=== PATIENT | female | born 1950 | race Caucasian/White ===

== ENCOUNTER → 2023-01-20 | Outpatient (CLI) | payer MEDICARE, OTHER ==
[2023-01-20 12:29] VITALS: BP 136/81; PULSE 89; RESP 17; TEMP 98
--- NOTE | 2023-01-20 13:09 | P.GSHP ---
History of Present Illness H&P Date: 01/20/23 Chief Complaint: Abnormal left breast mammogram and ultrasound Leah is a 72-year-old white female who underwent a bilateral mammogram on . Findings revealed an irregular spiculated high-density mass that was 1.3 x 1.2 cm in the upper outer left breast. Anlesions of concern were seen in the right breast. An ultrasound was done which confirmed the lesion of concern. The margins were angular and spiculated. She has felt a lump in her left breast for about 1 week. This was her first ever mammogram. She is not complaining of any trauma or infection in the breast. She is not complaining of any nipple discharge or skin changes. Caffeine:1 1/2 cup.day nicotine: none chocolate: occasional Family History: father: cancer ? type paternal aunt: bilateral breast cancer Hormonal History: menarche: 14 , breast fed, first born at 26 menopause: 44 Surgical History: serenity Medical History: none SociaL History: nicotine: none alcohol:daily wine drugs: none - Constitutional Constitutional: Denies chills, Denies fever - EENT Eyes: denies blurred vision, denies pain Ears: bilateral: decreased hearing, deny: tinnitus Ears, nose, mouth and throat: Denies headache, Denies sore throat - Breasts Breasts: bilateral: as per HPI - Cardiovascular Cardiovascular: Denies chest pain, Denies shortness of breath - Respiratory Respiratory: Denies cough, Denies 7 - Gastrointestinal Gastrointestinal: Denies abdominal pain, Denies diarrhea, Denies nausea, Denies vomiting - Genitourinary (Female) Genitourinary: Denies dysuria, Denies hematuria - Menstruation Menstruation: Reports postmenopausal - Musculoskeletal Musculoskeletal: Denies myalgias - Integumentary Integumentary: Denies pruritus, Denies rash - Neurological Neurological: Denies numbness, Denies weakness - Psychiatric Psychiatric: Denies anxiety, Denies depression - Endocrine Endocrine: Denies fatigue, Denies weight change - Hematologic/Lymphatic Comment: none - Allergic/Immunologic Allergic/Immunologic: Reports as per HPI Past Medical History Past Medical History: No Reported History History of Any Multi-Drug Resistant Organisms: None Reported Past Surgical History: No Surgical Hx Reported Additional Past Anesthesia/Blood Transfusion Reaction / Comment(s): no anesthesia Past Psychological History: No Psychological Hx Reported Smoking Status: Never smoker Past Alcohol Use History: Occasional Past Drug Use History: None Reported Medications and Allergies Home Medications Medication Instructions Recorded Confirmed Type Aspirin [[place] Aspirin EC] 81 mg PO DAILY 01/05/23 01/20/23 History Calcium Carb/Mag Ox/Zinc Sulf 1 tablet PO DAILY 01/20/23 01/20/23 History [Gul-Yji-Idau 334-134-5 mg Tab] Cholecalciferol (Vitamin D3) 125 mcg PO DAILY 01/20/23 01/20/23 History [Vitamin D3 (125 MCG = 5,000 IU)] Curcumin-Phosphatidylcholine 500 mg PO DAILY 01/20/23 01/20/23 History [Curcumin Phytosome] Glucosamine Sulfate 1,000 mg PO DAILY 01/20/23 01/20/23 History Melatonin 5 mg PO DIRECTED PRN 01/20/23 01/20/23 History Multivitamin [Multivitamins Adult 1 tablet PO DAILY 01/20/23 01/20/23 History Gummies] Ubidecarenone [Co Q-10] 30 mg PO DAILY 01/20/23 01/20/23 History Vitamin K2 [Mk-7] 90 mcg PO DAILY 01/20/23 01/20/23 History Allergies Allergy/AdvReac Type Severity Reaction Status Date / Time No Known Allergies Allergy Verified 01/20/23 12:21 Surgical - Exam Vital Signs Temp Pulse Resp BP Pulse Ox 98.0 F 89 17 136/81 95 01/20/23 12:26 01/20/23 12:26 01/20/23 12:26 01/20/23 12:26 01/20/23 12:26 - General no distress - Eyes normal ocular movement - ENT no hearing loss, no congestion - Neck trachea midline - Respiratory normal respiratory effort, clear to auscultation - Cardiovascular Rhythm: regular Heart Sounds: normal: S1, S2 - Abdomen Abdomen: soft, non tender, no guarding, no rigid, no rebound - Integumentary normal turgor - Neurologic no disoriented, no combative - Musculoskeletal normal gait - Psychiatric oriented to time, oriented to person, oriented to place, speech is normal, memory intact Breast Exam: BRA: 38I inspection: The lateral grade 3 ptosis Palpation: Right breast: Multi-positional exam fibrocystic changes no dominant masses or nodules of concern Left breast: Multiple positional exam fibrocystic changes at 3 o'clock position is approximately 1-1/2 cm area of firmness consistent with that which is seen radiographically Left axilla: No adenopathy of concern Results Mammogram and ultrasound reviewed with Dr. Doe Assessment and Plan Assessment: Impression: Radiographic and palpable abnormality left breast Plan: Left breast ultrasound-guided core biopsy follow-up after ultrasound-guided core biopsy Cc: Dr. Choi
== END ==
LOC: WWCWWP 11:38
PROVIDERS: ATTEND Surgery
DX: N63.21 Unspecified lump in the left breast, upper outer quadrant (principal); Z80.3 Family history of malignant neoplasm of breast; Z79.82 Long term (current) use of aspirin

== ENCOUNTER → 2023-01-24 | Day surgery (SDC) | payer MEDICARE, OTHER ==
--- NOTE | 2023-01-31 09:58 | MM ---
Reason for Exam: Post Procedure Mammogram. Patient History: Menarche at age 14. First Full-Term at age 26. Postmenopausal. Patient has history of breast feeding. Risk Values: Nanci 5 year model risk: 1.5%. NCI Lifetime model risk: 4.5%. Tissue Density: Left: The breast tissue is heterogeneously dense. This may lower the sensitivity of mammography. Pathology Description: Location: 2 o'clock. Marker Left Behind. Needle Type: Celero Cores: 5 Gauge: 12 The procedure of ultrasound guided core biopsy was explained to the patient. Benefits, alternatives, and risks were discussed. An informed consent was then obtained. The patient was placed in supine positioning for imaging and for the procedure. The overlying skin was prepped and draped in usual sterile fashion. Lidocaine buffered with bicarbonate was used as anesthetic into the skin and subcutaneous tissue up to area of concern in the left 2:00 breast. Under ultrasound guidance, a 12-gauge vacuum assisted biopsy gun device was used to obtain 5 core samples from a mass with tail component. Following this, a biopsy clip was left in lesion. The patient tolerated the procedure well without any immediate complication. The patient was kept in the radiology department for short stay after the procedure and then discharged home in stable condition. Postprocedure mammogram: The patient was transferred to mammography for physician ordered post procedure mammogram for clip placement verification. Impression: Successful, uncomplicated ultrasound guided core biopsy of a mass with tail component in the left 2:00 breast, full pathology results to follow. Pathology Results: Result: Malignant, Invasive ductal carcinoma. LEFT BREAST, 2:00, ULTRASOUND GUIDED NEEDLE CORE BIOPSY: Invasive moderately differentiated ductal carcinoma (Grade 2). See Surgical Pathology Cancer Case Summary. Overall Assessment: Malignant Assessment: MG diagnostic mammo LT wo CAD. - Left: Known biopsy proven malignancy, BI-RAD 6. Management: Surgical Consultation of the left breast. Electronically signed and approved by: Irvni Mason M.D. Radiologis
== END ==
LOC: RADUSWWP 12:38
PROVIDERS: ATTEND Surgery
DX: C50.212 Malignant neoplasm of upper-inner quadrant of left female breast (principal); Z17.0 Estrogen receptor positive status [ER+]; Z78.0 Asymptomatic menopausal state
CPT/HCPCS: 88305; 88342; 88341; 77065; 19083; A4648

== ENCOUNTER → 2023-01-28 | Outpatient (CLI) | payer MEDICARE, OTHER ==
[2023-01-28 12:41] VITALS: BP 146/74; PULSE 74; RESP 17; TEMP 97.6
--- NOTE | 2023-01-28 12:48 | P.PN ---
Subjective Progress Note Date: 01/28/23 Principal diagnosis: left breast invasive ductal cancer Abnormal left breast mammogram and ultrasound Leah is a 72-year-old white female who underwent a bilateral mammogram on . Findings revealed an irregular spiculated high-density mass that was 1.3 x 1.2 cm in the upper outer left breast. Anlesions of concern were seen in the right breast. An ultrasound was done which confirmed the lesion of concern. The margins were angular and spiculated. She has felt a lump in her left breast for about 1 week. This was her first ever mammogram. She is not complaining of any trauma or infection in the breast. She is not complaining of any nipple discharge or skin changes. 01-28-23 Biopsy of the left breast 01-24-23 invasive ductal cancer G2, ER+ Pr+ Her2- She tolerated the biopsy without difficulty. She did develop some ecchymosis fo llowing the biopsy. Caffeine:1 1/2 cup.day nicotine: none chocolate: occasional Family History: (both of them had been radiated by their father who was a DR. children and both developed cancer) father: cancer ? type paternal aunt: bilateral breast cancer Hormonal History: menarche: 14 , breast fed, first born at 26 menopause: 44 Surgical History: serenity Medical History: none SociaL History: nicotine: none alcohol:daily wine drugs: none - Constitutional Constitutional: Denies chills, Denies fever - EENT Eyes: denies blurred vision, denies pain Ears: bilateral: decreased hearing, deny: tinnitus Ears, nose, mouth and throat: Denies headache, Denies sore throat - Breasts Breasts: bilateral: as per HPI - Cardiovascular Cardiovascular: Denies chest pain, Denies shortness of breath - Respiratory Respiratory: Denies cough - Gastrointestinal Gastrointestinal: Denies abdominal pain, Denies diarrhea, Denies nausea, Denies vomiting - Genitourinary (Female) Genitourinary: Denies dysuria, Denies hematuria - Menstruation Menstruation: Reports postmenopausal - Musculoskeletal Musculoskeletal: Denies myalgias - Integumentary Integumentary: Denies pruritus, Denies rash - Neurological Neurological: Denies numbness, Denies weakness - Psychiatric Psychiatric: Denies anxiety, Denies depression - Endocrine Endocrine: Denies fatigue, Denies weight change - Hematologic/Lymphatic Comment: none - Allergic/Immunologic Allergic/Immunologic: Reports as per HPI Past Medical History Past Medical History: No Reported History History of Any Multi-Drug Resistant Organisms: None Reported Past Surgical History: No Surgical Hx Reported Additional Past Anesthesia/Blood Transfusion Reaction / Comment(s): no anesthesia Past Psychological History: No Psychological Hx Reported Smoking Status: Never smoker Past Alcohol Use History: Occasional Past Drug Use History: None Reported Medications and Allergies Home Medications Medication Instructions Recorded Confirmed Type Aspirin [[place] Aspirin EC] 81 mg PO DAILY 01/05/23 01/20/23 History Calcium Carb/Mag Ox/Zinc Sulf 1 tablet PO DAILY 01/20/23 01/20/23 History [Gkq-Eiy-Vaba 334-134-5 mg Tab] Cholecalciferol (Vitamin D3) 125 mcg PO DAILY 01/20/23 01/20/23 History [Vitamin D3 (125 MCG = 5,000 IU)] Curcumin-Phosphatidylcholine 500 mg PO DAILY 01/20/23 01/20/23 History [Curcumin Phytosome] Glucosamine Sulfate 1,000 mg PO DAILY 01/20/23 01/20/23 History Melatonin 5 mg PO DIRECTED PRN 01/20/23 01/20/23 History Multivitamin [Multivitamins Adult 1 tablet PO DAILY 01/20/23 01/20/23 History Gummies] Ubidecarenone [Co Q-10] 30 mg PO DAILY 01/20/23 01/20/23 History Vitamin K2 [Mk-7] 90 mcg PO DAILY 01/20/23 01/20/23 History Allergies Allergy/AdvReac Type Severity Reaction Status Date / Time No Known Allergies Allergy Verified 01/20/23 12:21 Objective - Constitutional General appearance: Present: cooperative - EENT Eyes: Present: EOMI ENT: Present: hearing grossly normal - Neck Neck: Present: normal ROM - Respiratory Respiratory: bilateral: CTA - Cardiovascular Rhythm: regular Heart sounds: normal: S1, S2 - Gastrointestinal General gastrointestinal: Present: soft - Integumentary Integumentary: Present: normal turgor - Musculoskeletal Musculoskeletal: Present: gait normal - Psychiatric Psychiatric: Present: A&O x's 3, appropriate affect, intact judgment & insight - Additional findings Additional findings: Breast Exam: BRA: 38I inspection: Bilateral grade 3 ptosis Palpation: Right breast: Multi-positional exam fibrocystic changes no dominant masses or nodules of concern Left breast: Multiple positional exam fibrocystic changes at 3 o'clock position is approximately 1-1/2 cm area of firmness consistent with that which is seen radiographically; echymosis at site of biopsy Evidence of infection or hematoma Left axilla: No adenopathy of concern Assessment and Plan Assessment: Impression: Left breast invasive ductal carcinoma stage I Plan: Left breast needle localization lumpectomy, left sentinel node biopsy possible axillary node dissection, hyperplastic tissue transfer Presentation of case at tumor board patient wixhes to have this done Risk and benefits of this procedure discussed with the patient and her . Risks include but are not limited to bleeding, infection, reaction to the anesthetic. Additionally we have discussed the fact that the choosing wisely initiative would suggest that the age of 72-year-old or may not benefit from sentinel lymph node biopsy. The patient wishes to have this done. Jimbo
== END ==
LOC: WWCWWP 11:53
PROVIDERS: ATTEND Surgery
DX: C50.412 Malignant neoplasm of upper-outer quadrant of left female breast (principal); R92.8 Other abnormal and inconclusive findings on diagnostic imaging of breast; Z80.3 Family history of malignant neoplasm of breast; Z17.0 Estrogen receptor positive status [ER+]; Z79.82 Long term (current) use of aspirin

== ENCOUNTER → 2023-04-07 | Outpatient (CLI) | payer MEDICARE, OTHER ==
[2023-04-07 13:21] VITALS: BP 116/77; PULSE 78; RESP 18; TEMP 97.8
--- NOTE | 2023-04-07 13:34 | P.PN ---
Subjective Progress Note Date: 04/07/23 Principal diagnosis: left breast invasive ductal cancer stage I Abnormal left breast mammogram and ultrasound Leah is a 72-year-old white female who underwent a bilateral mammogram on . Findings revealed an irregular spiculated high-density mass that was 1.3 x 1.2 cm in the upper outer left breast. Anlesions of concern were seen in the right breast. An ultrasound was done which confirmed the lesion of concern. The margins were angular and spiculated. She has felt a lump in her left breast for about 1 week. This was her first ever mammogram. She is not complaining of any trauma or infection in the breast. She is not complaining of any nipple discharge or skin changes. 01-28-23 Biopsy of the left breast 01-24-23 invasive ductal cancer G2, ER+ Pr+ Her2- She tolerated the biopsy without difficulty. She did develop some ecchymosis following the biopsy. 04-07-23 case presented at tumor board on 02-08-23 agree with surgical intervention to be followed by medical oncology and radiation oncology Patient does not complain of any new lumps masses or nodules of concern in either breast. She does have some fullness in the 3 o'clock position of the left breast which has not changed Caffeine:1 1/2 cup.day nicotine: none chocolate: occasional Family History: (both of them had been radiated by their father who was a DR. children and both developed cancer) father: cancer ? type paternal aunt: bilateral breast cancer Hormonal History: menarche: 14 , breast fed, first born at 26 menopause: 44 Surgical History: none Medical History: none SociaL History: nicotine: none alcohol:daily wine drugs: none - Constitutional Constitutional: Denies chills, Denies fever - EENT Eyes: denies blurred vision, denies pain Ears: bilateral: decreased hearing, deny: tinnitus Ears, nose, mouth and throat: Denies headache, Denies sore throat - Breasts Breasts: bilateral: as per HPI - Cardiovascular Cardiovascular: Denies chest pain, Denies shortness of breath - Respiratory Respiratory: Denies cough - Gastrointestinal Gastrointestinal: Denies abdominal pain, Denies diarrhea, Denies nausea, Denies vomiting - Genitourinary (Female) Genitourinary: Denies dysuria, Denies hematuria - Menstruation Menstruation: Reports postmenopausal - Musculoskeletal Musculoskeletal: Denies myalgias - Integumentary Integumentary: Denies pruritus, Denies rash - Neurological Neurological: Denies numbness, Denies weakness - Psychiatric Psychiatric: Denies anxiety, Denies depression - Endocrine Endocrine: Denies fatigue, Denies weight change - Hematologic/Lymphatic Comment: none - Allergic/Immunologic Allergic/Immunologic: Reports as per HPI Past Medical History Past Medical History: No Reported History History of Any Multi-Drug Resistant Organisms: None Reported Past Surgical History: No Surgical Hx Reported Additional Past Anesthesia/Blood Transfusion Reaction / Comment(s): no anesthesia Past Psychological History: No Psychological Hx Reported Smoking Status: Never smoker Past Alcohol Use History: Occasional Past Drug Use History: None Reported Medications and Allergies Home Medications Medication Instructions Recorded Confirmed Type Aspirin [[place] Aspirin EC] 81 mg PO DAILY 01/05/23 01/20/23 History Calcium Carb/Mag Ox/Zinc Sulf 1 tablet PO DAILY 01/20/23 01/20/23 History [Tfw-Iyl-Yxzj 334-134-5 mg Tab] Cholecalciferol (Vitamin D3) 125 mcg PO DAILY 01/20/23 01/20/23 History [Vitamin D3 (125 MCG = 5,000 IU)] Curcumin-Phosphatidylcholine 500 mg PO DAILY 01/20/23 01/20/23 History [Curcumin Phytosome] Glucosamine Sulfate 1,000 mg PO DAILY 01/20/23 01/20/23 History Melatonin 5 mg PO DIRECTED PRN 01/20/23 01/20/23 History Multivitamin [Multivitamins Adult 1 tablet PO DAILY 01/20/23 01/20/23 History Gummies] Ubidecarenone [Co Q-10] 30 mg PO DAILY 01/20/23 01/20/23 History Vitamin K2 [Mk-7] 90 mcg PO DAILY 01/20/23 01/20/23 History Allergies Allergy/AdvReac Type Severity Reaction Status Date / Time No Known Allergies Allergy Verified 01/20/23 12:21 Objective - Vital Signs Vital signs: Vital Signs Temp 97.8 F 04/07/23 13:14 Pulse 78 04/07/23 13:14 Resp 18 04/07/23 13:14 BP 116/77 04/07/23 13:14 Pulse Ox 96 04/07/23 13:14 FiO2 Intake & Output 04/06/23 04/07/23 04/07/23 18:59 06:59 18:59 Weight 93.894 kg - Constitutional General appearance: Present: cooperative - EENT Eyes: Present: EOMI ENT: Present: hearing grossly normal - Neck Neck: Present: normal ROM - Respiratory Respiratory: bilateral: CTA - Cardiovascular Rhythm: regular Heart sounds: normal: S1, S2 - Gastrointestinal General gastrointestinal: Present: soft - Integumentary Integumentary: Present: normal turgor - Musculoskeletal Musculoskeletal: Present: gait normal - Psychiatric Psychiatric: Present: A&O x's 3, appropriate affect, intact judgment & insight - Additional findings Additional findings: Breast Exam: BRA: 38I inspection: Bilateral grade 3 ptosis Palpation: Right breast: Multi-positional exam fibrocystic changes no dominant masses or nodules of concern Left breast: Multiple positional exam fibrocystic changes at 3 o'clock position is approximately 1-1/2 cm area of firmness consistent with that which is seen radiographically; echymosis at site of biopsy Left axilla: No adenopathy of concern Assessment and Plan Assessment: Impression: Left breast invasive ductal carcinoma stage I Plan: Left breast needle localization lumpectomy, left sentinel node biopsy possible axillary node dissection, onco-plastic tissue transfer Presentation of case at tumor board patient wishes to have this done 02-08-23 Risk and benefits of this procedure discussed with the patient and her . Risks include but are not limited to bleeding, infection, reaction to the anesthetic. Additionally we have discussed the fact that the choosing wisely initiative would suggest that the age of 72-year-old or may not benefit from sentinel lymph node biopsy. The patient wishes to have this done. Jimbo Additional CC's: Andrew Choi
== END ==
LOC: WWCWWP 12:55
PROVIDERS: ATTEND Surgery
DX: C50.412 Malignant neoplasm of upper-outer quadrant of left female breast (principal); Z17.0 Estrogen receptor positive status [ER+]; Z80.3 Family history of malignant neoplasm of breast

== ENCOUNTER 2023-05-10 09:10 | Day surgery (SDC) | payer MEDICARE, OTHER ==
--- NOTE | 2023-05-06 11:43 | P.PN ---
Subjective Progress Note Date: 05/06/23 left breast invasive ductal cancer stage I Abnormal left breast mammogram and ultrasound Leah is a 72-year-old white female who underwent a bilateral mammogram on . Findings revealed an irregular spiculated high-density mass that was 1.3 x 1.2 cm in the upper outer left breast. Anlesions of concern were seen in the right breast. An ultrasound was done which confirmed the lesion of concern. The margins were angular and spiculated. She has felt a lump in her left breast for about 1 week. This was her first ever mammogram. She is not complaining of any trauma or infection in the breast. She is not complaining of any nipple discharge or skin changes. 01-28-23 Biopsy of the left breast 01-24-23 invasive ductal cancer G2, ER+ Pr+ Her2- She tolerated the biopsy without difficulty. She did develop some ecchymosis following the biopsy. 04-07-23 case presented at tumor board on 02-08-23 agree with surgical intervention to be followed by medical oncology and radiation oncology Patient does not complain of any new lumps masses or nodules of concern in ei ther breast. She does have some fullness in the 3 o'clock position of the left breast which has not changed 04-29-23 Leah underwent left breast lumpectomy and sentinel node biopsy on04-21-23. The pathology revealed 1 of 4 sentinel lymph nodes positive for micrometastatic disease. Additionally she had invasive grade 2 ductal carcinoma present at new superior margin. All other margins were negative. Tumor size was 21 mm. she tolerated the surgery without difficulty. Caffeine:1 1/2 cup.day nicotine: none chocolate: occasional Family History: (both of them had been radiated by their father who was a DR. children and both developed cancer) father: cancer ? type paternal aunt: bilateral breast cancer Hormonal History: menarche: 14 , breast fed, first born at 26 menopause: 44 Surgical History: none Medical History: none SociaL History: nicotine: none alcohol:daily wine drugs: none - Constitutional Constitutional: Denies chills, Denies fever - EENT Eyes: denies blurred vision, denies pain Ears: bilateral: decreased hearing, deny: tinnitus Ears, nose, mouth and throat: Denies headache, Denies sore throat - Breasts Breasts: bilateral: as per HPI - Cardiovascular Cardiovascular: Denies chest pain, Denies shortness of breath - Respiratory Respiratory: Denies cough - Gastrointestinal Gastrointestinal: Denies abdominal pain, Denies diarrhea, Denies nausea, Denies vomiting - Genitourinary (Female) Genitourinary: Denies dysuria, Denies hematuria - Menstruation Menstruation: Reports postmenopausal - Musculoskeletal Musculoskeletal: Denies myalgias - Integumentary Integumentary: Denies pruritus, Denies rash - Neurological Neurological: Denies numbness, Denies weakness - Psychiatric Psychiatric: Denies anxiety, Denies depression - Endocrine Endocrine: Denies fatigue, Denies weight change - Hematologic/Lymphatic Comment: none - Allergic/Immunologic Allergic/Immunologic: Reports as per HPI Past Medical History Past Medical History: No Reported History History of Any Multi-Drug Resistant Organisms: None Reported Past Surgical History: No Surgical Hx Reported Additional Past Anesthesia/Blood Transfusion Reaction / Comment(s): no anesthesia Past Psychological History: No Psychological Hx Reported Smoking Status: Never smoker Past Alcohol Use History: Occasional Past Drug Use History: None Reported Medications and Allergies Home Medications Medication Instructions Recorded Confirmed Type Aspirin [[place] Aspirin EC] 81 mg PO DAILY 01/05/23 01/20/23 History Calcium Carb/Mag Ox/Zinc Sulf 1 tablet PO DAILY 01/20/23 01/20/23 History [Pra-Tka-Qvtx 334-134-5 mg Tab] Cholecalciferol (Vitamin D3) 125 mcg PO DAILY 01/20/23 01/20/23 History [Vitamin D3 (125 MCG = 5,000 IU)] Curcumin-Phosphatidylcholine 500 mg PO DAILY 01/20/23 01/20/23 History [Curcumin Phytosome] Glucosamine Sulfate 1,000 mg PO DAILY 01/20/23 01/20/23 History Melatonin 5 mg PO DIRECTED PRN 01/20/23 01/20/23 History Multivitamin [Multivitamins Adult 1 tablet PO DAILY 01/20/23 01/20/23 History Gummies] Ubidecarenone [Co Q-10] 30 mg PO DAILY 01/20/23 01/20/23 History Vitamin K2 [Mk-7] 90 mcg PO DAILY 01/20/23 01/20/23 History Allergies Allergy/AdvReac Type Severity Reaction Status Date / Time No Known Allergies Allergy Verified 01/20/23 12:21 Objective - Constitutional General appearance: Present: cooperative - EENT Eyes: Present: EOMI ENT: Present: hearing grossly normal - Neck Neck: Present: normal ROM - Respiratory Respiratory: bilateral: CTA - Cardiovascular Rhythm: regular Heart sounds: normal: S1, S2 - Gastrointestinal General gastrointestinal: Present: soft - Integumentary Integumentary: Present: normal turgor - Musculoskeletal Musculoskeletal: Present: gait normal - Psychiatric Psychiatric: Present: A&O x's 3, appropriate affect, intact judgment & insight - Additional findings Additional findings: Examination breasts: The patient has had recent surgery of the left breast, the incision in the axilla and breast are clean and dry and well-healed right breast examination was not repeated Assessment and Plan Assessment: Impression: [id number] invasive ductal carcinoma left breast, recent resection with positive superior margin Plan: re-excision superior margin lumpectomy site left breast Cc:
[~2023-05-10 09:10] MED LIST: DEXAMETHASONE SOD PHOSPHATE 4 MG/ML 1 ML VIAL IV ONE; HEPARIN SODIUM,PORCINE/PF 5,000 UNIT/0.5 ML SYRINGE SQ PRN; HYDROmorphone 0.5 MG/0.5 ML SYRINGE IVP PRN; LACTATED RINGERS 1,000 ML IV SCH; MIDAZOLAM 2 MG/2 ML VIAL IV PRN; ONDANSETRON 4 MG/2 ML VIAL IVP ONE; Pre Op ABX Message 1 EACH MISC MISCELLANE ONE
[2023-05-10 09:57] VITALS: TEMP 97.3
[2023-05-10] MEDS ORDERED: LIDOCAINE 1% (10MG/ML) FOR IV START INTRADERMA ONE (10:04)
--- NOTE | 2023-05-10 11:00 | P.NAPBC ---
NAPBC Queries - NAPBC Queries Was patient's case review presented at [facility] tumor board? If no, comment.: Yes Was patient's pathology reviewed at [facility]? If no, comment.: Yes Was breast conservation surgery offered? If no, comment.: Yes Was sentinel node biopsy offered? If no, comment.: Yes Was diagnosis confirmed by percutaneous core biopsy? If no, comment.: Yes Is patient mastectomy patient?: No Was a preop referral to reconstructive surgeon offered?: No Clinical Stage: stage1 left breast invasive ductal cancer, + superior margin scheduled for re- excision
[2023-05-10] MEDS ORDERED: PHENYLEPHRINE-0.9% NACL SYG 1,000 MCG/10 ML SYRINGE ONE (11:20)
[2023-05-10] MEDS ORDERED: ePHEDrine 50 MG/ML 1 ML VIAL ONE (11:20)
[2023-05-10] MEDS ORDERED: MIDAZOLAM 2 MG/2 ML VIAL ONE (11:20)
[2023-05-10] MEDS ORDERED: fentaNYL (PF) 50 MCG/ML 2 ML AMP ONE (11:20)
[2023-05-10] MEDS ORDERED: PROPOFOL 10 MG/ML 20 ML VIAL IV ONE (11:20)
[2023-05-10] MEDS ORDERED: LIDOCAINE 2% INJ 20 MG/ML (2 ML VIAL) ONE (11:20)
--- NOTE | 2023-05-10 12:18 | P.OP ---
Date of Procedure: 05/10/23 Preoperative Diagnosis: Positive superior margin on prior lumpectomy Postoperative Diagnosis: Same Procedure(s) Performed: Reexcision superior margin Anesthesia: ANGEA Surgeon: Pricilla Ames Estimated Blood Loss (ml): 3 IV fluids (ml): 300 Pathology: other (Reexcision superior margin 7 cm in length by 3 cm in width) Condition: stable Disposition: same day Indications for Procedure: Positive superior margin on lumpectomy left breast Operative Findings: Seroma cavity from prior lumpectomy is partially closed from onco-plastic tissue transfer Description of Procedure: The patient was taken to the operative suite and following induction of anesthesia the left breast was prepped and draped in a sterile fashion. The prior lumpectomy scar was reopened. Dissection was carried down to the pillars which had been brought together for the ankle plastic tissue transfer. These were opened. The seroma cavity was entered. The superior surface was grasped using Allis clamps. Excision was performed of the entire superior surface. The length of the excision was 7 cm in width was 2 cm. Following this hemostasis was again achieved. After assured that hemostasis was attained the wound was we ll irrigated. Surgicel was placed. The pillars were then reapproximated using 3-0 Vicryl suture. The subcutaneous tissue was closed using 3-0 Vicryl suture. The skin was closed using 4-0 Monocryl. A nylon skin suture was also placed. The patient tolerated procedure in stable condition. The superior margin was painted for orientation. This was sent to pathology. The patient tolerated the procedure in stable condition. All instruments and sponge counts were correct at the end of the case.
--- NOTE | 2023-05-10 12:19 | P.DS ---
Providers Attending physician: Pricilla Ames Primary care physician: Nate Wren Plan - Discharge Summary Discharge Rx Participant: No New Discharge Prescriptions: No Action Aspirin [Adult Low Dose Aspirin EC] 81 mg PO DAILY Multivitamins, Thera [Multivitamin (formulary)] 1 tab PO DAILY Discharge Medication List Aspirin [Adult Low Dose Aspirin EC] 81 mg PO DAILY 04/18/23 [History] Multivitamins, Thera [Multivitamin (formulary)] 1 tab PO DAILY 05/04/23 [History] Follow up Appointment(s)/Referral(s): Pricilla Ames MD [STAFF PHYSICIAN] - 05/19/23 8:00 am Activity/Diet/Wound Care/Special Instructions: do not drive for 24 hour from discharge or if taking narcotic pain medicine wear bra at all times may malted milk mixer after 48 hours Discharge Disposition: HOME SELF-CARE
[2023-05-10 12:34] VITALS: RESP 16
[2023-05-10] MEDS ORDERED: KETOROLAC 15 MG/ML 1 ML VIAL IVP ONE (13:08)
[2023-05-10 14:00] VITALS: BP 109/67; PULSE 97
== END 2023-05-10 14:21 | disposition home or self-care (01) ==
LOC: OR 09:10
PROVIDERS: ATTEND Surgery
DX: C50.412 Malignant neoplasm of upper-outer quadrant of left female breast (principal); Z86.59 Personal history of other mental and behavioral disorders; Z79.82 Long term (current) use of aspirin; Z79.899 Other long term (current) drug therapy
CPT/HCPCS: 88307; 19301; J2250; J1100; J2405; J3010; J1885; J2704; J1644; J2001; J2371

== ENCOUNTER → 2023-05-19 | Outpatient (CLI) | payer MEDICARE, OTHER ==
[2023-05-19 08:14] VITALS: BP 127/67; PULSE 77; RESP 18; TEMP 98.1
--- NOTE | 2023-05-19 08:33 | P.PN ---
Progress Note - Text Progress Note Date: 05/19/23 Leah underwent left breast lumpectomy and sentinel node biopsy on 04-21-23. The pathology revealed 1 of 4 sentinel lymph nodes positive for micrometastatic disease. Additionally she had invasive grade 2 ductal carcinoma present at new superior margin. All other margins were negative. Tumor size was 21 mm. she tolerated the surgery without difficulty. Patient underwent repeat reexcision on 05-10-23, a repeat reexcision was negative. The patient tolerated the procedure well. Her oncotype was 15. Examination: lungs: clear heart: RRR incision: clean and dry; probable small seroma Impression: Patient doing well postop Plan: 1. Appointment radiation oncology/patient would like to have the radiation and [place] 2. Appointment medical oncology 3. Removal of sutures 4. Follow up here in 6 weeks CC: Dr. Choi
== END ==
LOC: WWCWWP 07:36
PROVIDERS: ATTEND Surgery
DX: Z04.89 Encounter for examination and observation for other specified reasons (principal); D05.10 Intraductal carcinoma in situ of unspecified breast

== ENCOUNTER → 2023-07-21 | Outpatient (CLI) | payer MEDICARE, OTHER ==
--- NOTE | 2023-07-21 12:58 | P.PN ---
Progress Note - Text Progress Note Date: 07/21/23 Leah underwent left breast lumpectomy and sentinel node biopsy on 04-21-23. The pathology revealed 1 of 4 sentinel lymph nodes positive for micrometastatic disease. Additionally she had invasive grade 2 ductal carcinoma present at new superior margin. All other margins were negative. Tumor size was 21 mm. she tolerated the surgery without difficulty. Patient underwent repeat reexcision on 05-10-23, a repeat reexcision was negative. The patient tolerated the procedure well. Her oncotype was 15. She has been seen by radiation oncology approximately 2 weeks ago. At that time there was a seroma present which was small in nature. She had tattooing for radiation at that time and the breast was normal. The patient states the seroma went away. Patient however 2 weeks ago fell questionably hit her breast. The patient however over the last week developed increased firmness in the lateral aspect of the left breast with ecchymosis of the breast as well. Patient was not complaining of any fever or chills related to the breast. Examination: lungs: clear heart: RRR incision: clean and dry; ecchymosis over the left breast, fullness in the lateral aspect of the breast Impression: Recurrent seroma/hematoma Recommend attempted aspiration of fullness in the left lateral breast Following informed consent the area was prepped using alcohol in 18-gauge needle on a 20 mL syringe was inserted into the area of concern. Approximately 100 mL of serous hematoma colored fluid was removed. There was decrease in the size of firmness in the lateral aspect of the breast but not complete resolution. Plan: 1. Appointment radiation oncology/patient would like to have the radiation and [place] 2. Appointment medical oncology 3. follow up 1 week 4. CBC at this time CC: Dr. Choi
[2023-07-21 13:24] LABS: HCT 46.4 % (34.0-46.0); HGB 15.1 gm/dL (11.4-16.0); MCH 29.7 pg (25.0-35.0); MCHC 32.6 g/dL (31.0-37.0); MCV 91.1 fL (80.0-100.0); Mean Platelet Volume 6.9; Platelet Count 209 k/uL (150-450); RBC 5.09 m/uL (3.80-5.40); RDW 14.2 % (11.5-15.5); WBC 6.7 k/uL (3.8-10.6)
[2023-07-21 13:28] VITALS: BP 143/70; PULSE 96; RESP 17; TEMP 97.8
== END ==
LOC: WWCWWP 11:51
PROVIDERS: ATTEND Surgery
DX: N64.89 Other specified disorders of breast (principal); Z85.3 Personal history of malignant neoplasm of breast
CPT/HCPCS: 85027

== ENCOUNTER → 2023-07-28 | Outpatient (CLI) | payer MEDICARE, OTHER ==
--- NOTE | 2023-07-28 10:31 | P.PN ---
Progress Note - Text Progress Note Date: 07/28/23 Leah underwent left breast lumpectomy and sentinel node biopsy on 04-21-23. The pathology revealed 1 of 4 sentinel lymph nodes positive for micrometastatic disease. Additionally she had invasive grade 2 ductal carcinoma present at new superior margin. All other margins were negative. Tumor size was 21 mm. she tolerated the surgery without difficulty. Patient underwent repeat reexcision on 05-10-23, a repeat reexcision was negative. The patient tolerated the procedure well. Her oncotype was 15. She has been seen by radiation oncology approximately 2 weeks ago. At that time there was a seroma present which was small in nature. She had tattooing for radiation at that time and the breast was normal. The patient states the seroma went away. Patient however 2 weeks ago fell questionably hit her breast. The patient however over the last 2 weeks developed increased firmness in the lateral aspect of the left breast with ecchymosis of the breast as well. Patient was not complaining of any fever or chills related to the breast. She was seen last week and a seroma was aspirated and approximately 100 mL of serosanguineous fluid was removed. At that time a CBC was performed. White count was noted to be 6.7 and her hemoglobin was noted to be 15.1. The patient today has decreased ecchymosis of the breast but she does have swelling at the lumpectomy site. Examination: lungs: clear heart: RRR incision: clean and dry; ecchymosis over the left breast improved, fullness in t he lateral aspect of the breast Impression: Recurrent seroma/hematoma Recommend attempted aspiration of fullness in the left lateral breast Following informed consent the area was prepped using alcohol in 18-gauge needle on a 20 mL syringe was inserted into the area of concern. Approximately 170 mL of serosanguineous fluid was removed. There was decrease in the size of firmness in the lateral aspect of the breast with almost complete resolution Plan: 1. Appointment radiation oncology/patient would like to have the radiation and [place] 2. Appointment medical oncology 3. follow up 1 week CC: Dr. Choi
[2023-07-28 10:35] VITALS: BP 134/76; PULSE 95; RESP 17; TEMP 98.3
== END ==
LOC: WWCWWP 10:09
PROVIDERS: ATTEND Surgery
DX: N64.89 Other specified disorders of breast (principal); Z85.3 Personal history of malignant neoplasm of breast; Z90.12 Acquired absence of left breast and nipple

== ENCOUNTER → 2023-08-03 | Outpatient (CLI) | payer MEDICARE, OTHER ==
[2023-08-03 11:24] VITALS: BP 136/79; PULSE 96; RESP 17; TEMP 97.9
--- NOTE | 2023-08-03 11:24 | P.PN ---
Progress Note - Text Progress Note Date: 08/03/23 Progress Note Date: 07/28/23 Leah underwent left breast lumpectomy and sentinel node biopsy on 04-21-23. The pathology revealed 1 of 4 sentinel lymph nodes positive for micrometastatic disease. Additionally she had invasive grade 2 ductal carcinoma present at new superior margin. All other margins were negative. Tumor size was 21 mm. she tolerated the surgery without difficulty. Patient underwent repeat reexcision on 05-10-23, a repeat reexcision was negative. The patient tolerated the procedure well. Her oncotype was 15. She has been seen by radiation oncology. At that time there was a seroma present which was small in nature. She had tattooing for radiation at that time and the breast was normal. The patient states the seroma went away. Patient however several weeks ago fell questionably hit her breast. The patient then developed increased firmness in the lateral aspect of the left breast with ecchymosis of the breast as well. Patient was not complaining of any fever or chills related to the breast. She was seen two weeks ago and a seroma was aspirated and approximately 100 mL of serosanguineous fluid was removed. At that time a CBC was performed. White count was noted to be 6.7 and her hemoglobin was noted to be 15.1. The patient on - had decreased ecchymosis of the breast but she does have swelling at the lumpectomy site, 170 mL of serosanguineous fluid was aspirated The ecchymosis has continued to improve and on today's examination there remains some fullness at the lateral side for which aspiration has been recommended. Following informed consent the area was prepped using alcohol. An 18-gauge needle on a 20 mL syringe was inserted into the area and approximately 70 mL of serosanguineous fluid was removed. Examination: lungs: clear heart: RRR incision: clean and dry; ecchymosis over the left breast improved, fullness in the lateral aspect of the breast Impression: Seroma/resolving hematoma lateral left breast Recommend attempted aspiration of fullness in the left lateral breast Following informed consent the area was prepped using alcohol in 18-gauge needle on a 20 mL syringe was inserted into the area of concern. Approximately 70 mL of serosanguineous fluid was removed. There was decrease in the size of firmness in the lateral aspect of the breast with almost complete resolution Plan: 1. Appointment radiation oncology/patient would like to have the radiation and [place] 2. Appointment medical oncology 3. follow up 1 week CC: Dr. Choi
== END ==
LOC: WWCWWP 09:49
PROVIDERS: ATTEND Surgery
DX: N64.89 Other specified disorders of breast (principal); Z85.3 Personal history of malignant neoplasm of breast; Z90.12 Acquired absence of left breast and nipple; Z79.82 Long term (current) use of aspirin

== ENCOUNTER → 2023-08-11 | Outpatient (CLI) | payer MEDICARE, OTHER ==
[2023-08-11 09:57] VITALS: BP 122/74; PULSE 65; RESP 17; TEMP 98.2
--- NOTE | 2023-08-11 10:25 | P.PN ---
Progress Note - Text Progress Note Date: 08/11/23 Leah underwent left breast lumpectomy and sentinel node biopsy on 04-21-23. The pathology revealed 1 of 4 sentinel lymph nodes positive for micrometastatic disease. Additionally she had invasive grade 2 ductal carcinoma present at new superior margin. All other margins were negative. Tumor size was 21 mm. she tolerated the surgery without difficulty. Patient underwent repeat reexcision on 05-10-23, a repeat reexcision was negative. The patient tolerated the procedure well. Her oncotype was 15. She has been seen by radiation oncology. At that time there was a seroma present which was small in nature. She had tattooing for radiation at that time and the breast was normal. The patient states the seroma went away. Patient however several weeks ago fell questionably hit her breast. The patient then developed increased firmness in the lateral aspect of the left breast with ecchymosis of the breast as well. Patient was not complaining of any fever or chills related to the breast. She was seen following this weeks and a seroma was aspirated and approximately 100 mL of serosanguineous fluid was removed. At that time a CBC was performed. White count was noted to be 6.7 and her hemoglobin was noted to be 15.1. The patient on 10-19-18- had decreased ecchymosis of the breast but she does have swelling at the lumpectomy site, 170 mL of serosanguineous fluid was aspirated The ecchymosis has continued to improve and on 08-03-23 examination there remains some fullness at the lateral side for which aspiration was recommended. Following informed consent the area was prepped using alcohol. An 18-gauge needle on a 20 mL syringe was inserted into the area and approximately 70 mL of serosanguineous fluid was removed. 08-11-23 Lungs: Clear Heart: Regular rate and rhythm Incision: Clean and dry, ecchymosis has resolved, fullness in the lateral aspect of the left breast has improved there is still some fullness and therefore attempted aspiration is recommended Following informed consent the area of concern was prepped using alcohol. In 18-gauge needle on a 20 mL syringe was inserted into the area of concern approximately 25 cc of what appears to be old hematoma was aspirated. The patient tolerated this without difficulty She has had appointment with medical oncology, they're going to do a bone density and recommend hormone therapy after radiation therapy. Impression: Seroma/resolving hematoma lateral left breast Recommend attempted aspiration of fullness in the left lateral breast Following informed consent the area was prepped using alcohol in 18-gauge needle on a 20 mL syringe was inserted into the area of concern. Approximately 25 mL of serosanguineous fluid was removed. There was decrease in the size of firmness in the lateral aspect of the breast with almost complete resolution Plan: 1. Appointment radiation oncology/patient would like to have the radiation and [place] 2. follow up here 1 week CC: Dr. Choi
== END ==
LOC: WWCWWP 09:38
PROVIDERS: ATTEND Surgery
DX: N64.89 Other specified disorders of breast (principal)

== ENCOUNTER → 2023-08-18 | Outpatient (CLI) | payer MEDICARE, OTHER ==
--- NOTE | 2023-08-18 10:41 | P.PN ---
Progress Note - Text Progress Note Date: 08/18/23 08/11/23 Leah underwent left breast lumpectomy and sentinel node biopsy on 04-21-23. The pathology revealed 1 of 4 sentinel lymph nodes positive for micrometastatic disease. Additionally she had invasive grade 2 ductal carcinoma present at new superior margin. All other margins were negative. Tumor size was 21 mm. she tolerated the surgery without difficulty. Patient underwent repeat reexcision on 05-10-23, a repeat reexcision was negative. The patient tolerated the procedure well. Her oncotype was 15. She has been seen by radiation oncology. At that time there was a seroma present which was small in nature. She had tattooing for radiation at that time and the breast was normal. The patient states the seroma went away. Patient however several weeks ago fell questionably hit her breast. The patient then developed increased firmness in the lateral aspect of the left breast with ecchymosis of the breast as well. Patient was not complaining of any fever or chills related to the breast. She was seen following this on 07-21-23 and a seroma was aspirated and approximately 100 mL of serosanguineous fluid was removed. At that time a CBC was performed. White count was noted to be 6.7 and her hemoglobin was noted to be 15.1. 07-28-23 had decreased ecchymosis of the breast but she does have swelling at the lumpectomy site, 170 mL of serosanguineous fluid was aspirated The ecchymosis has continued to improve and on 08-03-23 examination there remains some fullness at the lateral side for which aspiration was recommended. Following informed consent the area was prepped using alcohol. An 18-gauge needle on a 20 mL syringe was inserted into the area and approximately 70 mL of serosanguineous fluid was removed. 08-11-23 25 cc of fluid aspirated 08-18-23 The patient is doing examined for seroma at the left lumpectomy site. There is some mild swelling at the site. Following informed consent and 18-gauge needle on a 20 mL syringe was inserted into the area and approximately 60 mL of serosanguineous fluid was removed. There seemed to be complete resolution of the seroma. Plan: Follow up in 1 week CC: Dr. Choi
== END ==
LOC: WWCWWP 10:14
PROVIDERS: ATTEND Surgery
DX: L76.33 Postprocedural seroma of skin and subcutaneous tissue following a dermatologic procedure (principal); Z85.3 Personal history of malignant neoplasm of breast

== ENCOUNTER → 2023-08-30 | Outpatient (CLI) | payer MEDICARE, OTHER ==
--- NOTE | 2023-08-30 15:08 | P.PN ---
Progress Note - Text Progress Note Date: 08/30/23 08/11/23 Leah underwent left breast lumpectomy and sentinel node biopsy on 04-21-23. The pathology revealed 1 of 4 sentinel lymph nodes positive for micrometastatic disease. Additionally she had invasive grade 2 ductal carcinoma present at new superior margin. All other margins were negative. Tumor size was 21 mm. she tolerated the surgery without difficulty. Patient underwent repeat reexcision on 05-10-23, a repeat reexcision was negative. The patient tolerated the procedure well. Her oncotype was 15. She has been seen by radiation oncology. At that time there was a seroma present which was small in nature. She had tattooing for radiation at that time and the breast was normal. The patient states the seroma went away. Patient however several weeks ago fell questionably hit her breast. The patient then developed increased firmness in the lateral aspect of the left breast with ecchymosis of the breast as well. Patient was not complaining of any fever or chills related to the breast. She was seen following this on 07-21-23 and a seroma was aspirated and approximately 100 mL of serosanguineous fluid was removed. At that time a CBC was performed. White count was noted to be 6.7 and her hemoglobin was noted to be 15.1. 07-28-23 had decreased ecchymosis of the breast but she does have swelling at the lumpectomy site, 170 mL of serosanguineous fluid was aspirated The ecchymosis has continued to improve and on 08-03-23 examination there remains some fullness at the lateral side for which aspiration was recommended. Following informed consent the area was prepped using alcohol. An 18-gauge needle on a 20 mL syringe was inserted into the area and approximately 70 mL of serosanguineous fluid was removed. 08-11-23 25 cc of fluid aspirated 08-18-23 The patient is being examined for seroma at the left lumpectomy site. There is some mild swelling at the site. Following informed consent and 18-gauge needle on a 20 mL syringe was inserted into the area and approximately 60 mL of serosanguineous fluid was removed. There seemed to be complete resolution of the seroma. 08-30-23 The patient was examined for recurrent seroma at the left lumpectomy site. There was some mild swelling at the site. Following informed consent and 18- gauge needle on a 60 mL syringe was inserted into the area and proximally 45 mL of serosanguineous fluid was removed. There seemed to be complete resolution of the seroma. Plan: Follow up in 2 week CC: Dr. Choi
== END ==
LOC: WWCWWP 14:44
PROVIDERS: ATTEND Surgery
DX: Z90.12 Acquired absence of left breast and nipple (principal); Z79.82 Long term (current) use of aspirin

== ENCOUNTER → 2023-09-15 | Outpatient (CLI) | payer MEDICARE, OTHER ==
--- NOTE | 2023-09-15 11:03 | P.PN ---
Progress Note - Text Progress Note Date: 09/15/23 08/11/23 Leah underwent left breast lumpectomy and sentinel node biopsy on 04-21-23. The pathology revealed 1 of 4 sentinel lymph nodes positive for micrometastatic disease. Additionally she had invasive grade 2 ductal carcinoma present at new superior margin. All other margins were negative. Tumor size was 21 mm. she tolerated the surgery without difficulty. Patient underwent repeat reexcision on 05-10-23, a repeat reexcision was negative. The patient tolerated the procedure well. Her oncotype was 15. She has been seen by radiation oncology. At that time there was a seroma present which was small in nature. She had tattooing for radiation at that time and the breast was normal. The patient states the seroma went away. Patient however several weeks ago fell questionably hit her breast. The patient then developed increased firmness in the lateral aspect of the left breast with ecchymosis of the breast as well. Patient was not complaining of any fever or chills related to the breast. She was seen following this on 07-21-23 and a seroma was aspirated and approximately 100 mL of serosanguineous fluid was removed. At that time a CBC was performed. White count was noted to be 6.7 and her hemoglobin was noted to be 15.1. 07-28-23 had decreased ecchymosis of the breast but she does have swelling at the lumpectomy site, 170 mL of serosanguineous fluid was aspirated The ecchymosis has continued to improve and on 08-03-23 examination there remains some fullness at the lateral side for which aspiration was recommended. Following informed consent the area was prepped using alcohol. An 18-gauge needle on a 20 mL syringe was inserted into the area and approximately 70 mL of serosanguineous fluid was removed. 08-11-23 25 cc of fluid aspirated 08-18-23 The patient is being examined for seroma at the left lumpectomy site. There is some mild swelling at the site. Following informed consent and 18-gauge needle on a 20 mL syringe was inserted into the area and approximately 60 mL of serosanguineous fluid was removed. There seemed to be complete resolution of the seroma. 08-30-23 The patient was examined for recurrent seroma at the left lumpectomy site. There was some mild swelling at the site. Following informed consent and 18- gauge needle on a 60 mL syringe was inserted into the area and proximally 45 mL of serosanguineous fluid was removed. There seemed to be complete resolution of the seroma. 09-15-23 The patient states at this time that she has not noted any change in the left lumpectomy site since we aspirated last. On examination there is some postop changes there but nothing to be aspirated today. I have recommended that she follow up again with radiation oncology. She will follow-up here following her radiation treatment in 3 months. she is going to follow with medical oncology after her radiation. Plan: Follow up in 3 months CC: Dr. Choi
== END ==
LOC: WWCWWP 10:08
PROVIDERS: ATTEND Surgery
DX: Z12.31 Encounter for screening mammogram for malignant neoplasm of breast (principal); L76.82 Other postprocedural complications of skin and subcutaneous tissue

== ENCOUNTER → 2023-12-22 | Outpatient (CLI) | payer MEDICARE, OTHER ==
[2023-12-22 10:35] VITALS: BP 133/76; PULSE 79; RESP 15; TEMP 97.9
--- NOTE | 2023-12-22 10:37 | P.PN ---
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 Findings revealed an irregular spiculated high-density mass that was 1.3 x 1.2 cm in the upper outer left breast. No lesions of concern were seen in the right breast. An ultrasound was done which confirmed the lesion of concern. The margins were angular and spiculated. She had felt a lump in her left breast for about 1 week. This was her first ever mammogram. She was not complaining of any trauma or infection in the breast. She was not complaining of any nipple discharge or skin changes. 01-28-23 Biopsy of the left breast 01-24-23 invasive ductal cancer G2, ER+ Pr+ Her2- She tolerated the biopsy without difficulty. She did develop some ecchymosis following the biopsy. 04-07-23 case presented at tumor board on 02-08-23 agree with surgical intervention to be followed by medical oncology and radiation oncology Patient did not complain of any new lumps masses or nodules of concern in either breast. She did have some fullness in the 3 o'clock position of the left breast which has not changed 12-22-23 Leah underwent a lumpectomy and SNB on 04-21-23, pathology revealed 1 of 4 senti earline nodes (+) for micrometastatic disease. The lesion was 21 mm with a (+) superior margin. this was re-resected on 05-10-23. Her new margin was negative. Post operatively she devleoped a seroma and this was aspirated multiple times. The last time she was seen was on 09-15-23. She completed radiation therapy with Dr. Hebert out of [place]. She is on Letrazole and is following with Dr. Munoz. She has a right breast mammogram scheduled for December 28 in [place]. She is not having the left breast done yet because she just completed radiation therapy. At this time she is not complaining of any new lumps masses or nodules of concern in either breast. She states she will not be following with us any longer. She chooses to have her care done locally in the [place] area. Caffeine:1 1/2 cup.day nicotine: none chocolate: occasional Family History: (both of them had been radiated by their father who was a DR. children and both developed cancer) father: cancer ? type paternal aunt: bilateral breast cancer Hormonal History: menarche: 14 , breast fed, first born at 26 menopause: 44 Surgical History: none Medical History: none SociaL History: nicotine: none alcohol:daily wine drugs: none - Constitutional Constitutional: Denies chills, Denies fever - EENT Eyes: denies blurred vision, denies pain Ears: bilateral: decreased hearing, deny: tinnitus Ears, nose, mouth and throat: Denies headache, Denies sore throat - Breasts Breasts: bilateral: as per HPI - Cardiovascular Cardiovascular: Denies chest pain, Denies shortness of breath - Respiratory Respiratory: Denies cough - Gastrointestinal Gastrointestinal: Denies abdominal pain, Denies diarrhea, Denies nausea, Denies vomiting - Genitourinary (Female) Genitourinary: Denies dysuria, Denies hematuria - Menstruation Menstruation: Reports postmenopausal - Musculoskeletal Musculoskeletal: Denies myalgias - Integumentary Integumentary: Denies pruritus, Denies rash - Neurological Neurological: Denies numbness, Denies weakness - Psychiatric Psychiatric: Denies anxiety, Denies depression - Endocrine Endocrine: Denies fatigue, Denies weight change - Hematologic/Lymphatic Comment: none - Allergic/Immunologic Allergic/Immunologic: Reports as per HPI Past Medical History Past Medical History: No Reported History History of Any Multi-Drug Resistant Organisms: None Reported Past Surgical History: No Surgical Hx Reported Additional Past Anesthesia/Blood Transfusion Reaction / Comment(s): no anesthesia Past Psychological History: No Psychological Hx Reported Smoking Status: Never smoker Past Alcohol Use History: Occasional Past Drug Use History: None Reported Medications and Allergies Home Medications Medication Instructions Recorded Confirmed Type Aspirin [Phelps Aspirin EC] 81 mg PO DAILY 01/05/23 01/20/23 History Calcium Carb/Mag Ox/Zinc Sulf 1 tablet PO DAILY 01/20/23 01/20/23 History [Jpp-Nqh-Dydw 334-134-5 mg Tab] Cholecalciferol (Vitamin D3) 125 mcg PO DAILY 01/20/23 01/20/23 History [Vitamin D3 (125 MCG = 5,000 IU)] Curcumin-Phosphatidylcholine 500 mg PO DAILY 01/20/23 01/20/23 History [Curcumin Phytosome] Glucosamine Sulfate 1,000 mg PO DAILY 01/20/23 01/20/23 History Melatonin 5 mg PO DIRECTED PRN 01/20/23 01/20/23 History Multivitamin [Multivitamins Adult 1 tablet PO DAILY 01/20/23 01/20/23 History Gummies] Ubidecarenone [Co Q-10] 30 mg PO DAILY 01/20/23 01/20/23 History Vitamin K2 [Mk-7] 90 mcg PO DAILY 01/20/23 01/20/23 History Allergies Allergy/AdvReac Type Severity Reaction Status Date / Time No Known Allergies Allergy Verified 01/20/23 12:21 Objective - Vital Signs Vital signs: Vital Signs Temp 97.9 F 12/22/23 10:12 Pulse 79 12/22/23 10:12 Resp 15 12/22/23 10:12 BP 133/76 12/22/23 10:12 Pulse Ox 98 12/22/23 10:12 FiO2 Intake & Output 12/21/23 12/22/23 12/22/23 18:59 06:59 18:59 Weight 94.801 kg - Constitutional General appearance: Present: cooperative - EENT Eyes: Present: EOMI ENT: Present: hearing grossly normal - Neck Neck: Present: normal ROM - Respiratory Respiratory: bilateral: CTA - Cardiovascular Heart sounds: normal: S1, S2 - Integumentary Integumentary: Present: normal turgor - Musculoskeletal Musculoskeletal: Present: gait normal - Psychiatric Psychiatric: Present: A&O x's 3, appropriate affect, intact judgment & insight - Additional findings Additional findings: Breast Exam: BRA: 38I inspection: Bilateral grade 3 ptosis Palpation: Right breast: Multi-positional exam fibrocystic changes no dominant masses or nodules of concern : No adenopathy of concern Left breast: Multiple positional exam postradiation and postoperative changes noted greatest in the lateral aspect of the breast, no new lesions of concern Left axilla: No adenopathy of concern Assessment and Plan Assessment: Impression: Patient's status post left breast lumpectomy/radiation therapy for stage I invasive ductal carcinoma No evidence of any recurrent disease on letrozole on Todays examination there is nothing which would warrant interventional biopsy Plan: Continue to follow with medical and radiation oncology Right breast mammogram December 28 to be done in [place]; opted to not be seen here again and will follow-up in [place] Patient will have a left breast mammogram in approximately 6 months in [facility] Patient recommended to follow-up here however she states she is going to seek her care more locally in the [place] area and will not be seeing us again CC: Dr. Choi
== END ==
LOC: WWCWWP 09:39
PROVIDERS: ATTEND Surgery
DX: C50.412 Malignant neoplasm of upper-outer quadrant of left female breast (principal); Z17.0 Estrogen receptor positive status [ER+]; Z92.3 Personal history of irradiation; Z98.890 Other specified postprocedural states